=== PATIENT | female | born 1960 | race Caucasian/White ===

== ENCOUNTER → 2016-08-21 | Outpatient (CLI) | payer BC ==
[~2016-08-21] VITALS: Ht 172.7 cm; Wt 56.0 kg
[~2016-08-21] MED LIST: COPAXONE40 MG/1 ML SC; ERGOCALCIF50000 UNIT PO; ULTRAM50 MG PO
[2016-08-21 14:41] VITALS: BP 167/89
== END | disposition home or self-care (01) ==
LOC: IVINF 08-16 15:00
DX: M89.8X9 Other specified disorders of bone, unspecified site (principal); M85.80 Other specified disorders of bone density and structure, unspecified site
CPT/HCPCS: 96365; C1753; J3489

== ENCOUNTER → 2017-08-22 | Outpatient (CLI) | payer BC ==
[~2017-08-22] VITALS: Ht 172.7 cm; Wt 55.0 kg
[~2017-08-22] MED LIST changes: +AUBAGIO14 MG PO
[2017-08-22 10:14] VITALS: BP 150/79
== END | disposition home or self-care (01) ==
LOC: IVINF 09:48
DX: M85.80 Other specified disorders of bone density and structure, unspecified site (principal)
CPT/HCPCS: 96365; J3489